=== PATIENT | female | born 2000 | race Caucasian/White ===

== ENCOUNTER 2020-10-03 04:35 | Inpatient (IN) | payer OTHER, SELFPAY ==
[~2020-10-03] VITALS: Ht 154.9 cm; Wt 114.3 kg
[2020-10-03] MEDS ORDERED: [UNRECOGNIZED DRUG - CODE] PO (04:48)
[2020-10-03] MEDS ORDERED: TRA200 PO (04:51)
[2020-10-03] MEDS ORDERED: METHYLERGONOVINE 0.2 MG/ML AMP IM PRN (05:20)
[2020-10-03] MEDS ORDERED: OXYTOCIN 20 UNITS in LACTATED RINGERS 1,000 ML IV SCH (05:20)
[2020-10-03] MEDS ORDERED: PROMETHAZINE 25 MG/ML VIAL IVP PRN (05:20)
[2020-10-03] MEDS ORDERED: CARBOPROST 250 MCG/ML AMP IM PRN (05:20)
[2020-10-03] MEDS ORDERED: LACTATED RINGERS 500 ML IV SCH (05:20)
[2020-10-03] MEDS ORDERED: AMPICILLIN 2,000 MG in NACL 0.9% MINI-BAG PLUS 100 ML IV SCH (05:20)
[2020-10-03] MEDS ORDERED: OXYTOCIN 10 UNITS/ML VIAL IM SCH (05:20)
[2020-10-03] MEDS ORDERED: NALBUPHINE 10 MG/ML AMP IVP PRN (05:20)
[2020-10-03] MEDS ORDERED: AMPICILLIN 2,000 MG VIAL ONE (05:32)
[2020-10-03 05:38] VITALS: BP 135/71
[2020-10-03] MEDS: LACTATED RINGERS 1,000 ML IV SCH ×3 (06:03→17:36)
--- NOTE | 2020-10-03 06:57 | NUR ---
PATIENT HAS BEEN SCREENED AND CATEGORIZED LOW NUTRITION RISK. PATIENT WILL BE SEEN WITHIN 7 DAYS OF ADMISSION. 10/11/20 VANDANA ZAVALETA MS, RDN
[2020-10-03 08:06] LABS: APPEARANCE,URINE CLEAR (CLEAR); BILIRUBIN,URINE NEGATIVE (NEGATIVE); BLOOD, URINE NEGATIVE (NEGATIVE); COLOR,URINE YELLOW (YELLOW); LEUKOCYTE ESTERASE ,URINE NEGATIVE (NEGATIVE); NITRITE, URINE NEGATIVE (NEGATIVE); UGLUCOSE NEGATIVE (NEGATIVE)
[2020-10-03 08:07] LABS: BASOPHILS % (AUTO) 0.4 % (0.0-2.0); EOSINOPHILS # (AUTO) 0.1 K/uL (0-0.4); EOSINOPHILS % (AUTO) 1.3 % (0.0-4.0); HEMOGLOBIN 11.5 g/dL (12.0-16.0); LYMPHOCYTES # (AUTO) 1.4 K/uL (2.5-16.5); LYMPHOCYTES % (AUTO) 13.9 % (20.5-51.1); MEAN CORPUSCULAR HEMOGLOBIN 26 pg (27-31); MEAN CORPUSCULAR HGB CONC 33 g/dL (33-37); MEAN CORPUSCULAR VOLUME 79.5 fL (80-94); MONOCYTES # (AUTO) 0.6 K/uL (0.8-1.0); MONOCYTES % (AUTO) 5.8 % (1.7-9.3); NEUTROPHILS # (AUTO) 7.7 K/uL (1.8-7.7); NEUTROPHILS % (AUTO) 78.6 % (42.2-75.2); PLATELET COUNT (AUTO) 301 K/uL (140-450); RED BLOOD CELL COUNT(AUTO) 4.41 MIL/uL (4.20-5.40); RED CELL DISTRIBUTION WIDTH 15.8 % (11.6-13.7); WHITE BLOOD COUNT (AUTO) 9.8 K/uL (4.5-11.0)
[2020-10-03 08:12] LABS: ALBUMIN 2.3 g/dL (3.4-5.0); CREATININE 0.5 mg/dL (0.6-1.3); TOTAL BILIRUBIN 0.2 mg/dL (0.0-1.0)
[2020-10-03 08:16] LABS: BARBITURATE, URINE NEGATIVE ng/ml (NEG <=200); BENZODIAZEPINE, URINE NEGATIVE ng/mL (NEG <=200); CANNABINOID, URINE NEGATIVE ng/mL (NEG <=50); COCAINE, URINE NEGATIVE ng/mL (NEG <=300); OPIATE, URINE NEGATIVE ng/mL (NEG <=2000); PHENCYCLIDINE SCREEN,URINE NEGATIVE ng/mL (NEG <=25)
[2020-10-03] MEDS ORDERED: AMPICILLIN 1,000 MG VIAL ONE ×3 (10:04→17:58)
[2020-10-03] MEDS: AMPICILLIN 1,000 MG in NACL 0.9% MINI-BAG PLUS 50 ML IV SCH ×2 (14:09→18:01)
[2020-10-03] MEDS ORDERED: LIDOCAINE 1% 500 MG/50 ML VIAL ONE (20:10)
[2020-10-03] MEDS ORDERED: fentaNYL citrate 0.05 MG/ML VIAL ONE (20:14)
[2020-10-03] MEDS ORDERED: ROPIVACAINE 0.2%/NS PREMIX 200 ML EPI ONE (20:15)
[2020-10-04] MEDS ORDERED: AMPICILLIN 1,000 MG VIAL ONE ×4 (00:47→13:58)
[2020-10-04] MEDS: LACTATED RINGERS 1,000 ML IV SCH ×2 (02:28→10:34)
[2020-10-04] MEDS ORDERED: OXYTOCIN 20 UNITS/LR PREMIX 1,000 ML IV ONE ×2 (04:53→18:03)
[2020-10-04] MEDS: AMPICILLIN 1,000 MG in NACL 0.9% MINI-BAG PLUS 50 ML IV SCH ×3 (05:44→14:03)
[2020-10-04] MEDS ORDERED: ROPIVACAINE 0.2%/NS PREMIX 200 ML EPI ONE (09:34)
[2020-10-04] MEDS ORDERED: TERBUTALINE 1 MG/ML VIAL SUBQ SCH (15:55)
[2020-10-04] MEDS ORDERED: TERBUTALINE 1 MG/ML VIAL SUBQ ONE (15:58)
[2020-10-04] MEDS ORDERED: MORPHINE PRES FREE 10 MG/10 ML AMP IV ONE (16:45)
[2020-10-04] MEDS ORDERED: MORPHINE SULFATE 4 MG/ML SYR ONE (16:50)
[2020-10-04] MEDS ORDERED: ONDANSETRON 4 MG/2 ML VIAL ONE (16:50)
[2020-10-04] MEDS ORDERED: PROPOFOL 200 MG/20 ML VIAL IV ONE (16:50)
[2020-10-04] MEDS ORDERED: LIDOCAINE MPF 1% 10 MG/ML VIAL INJ SCH (17:05)
[2020-10-04] MEDS ORDERED: OXYTOCIN 20 UNITS in LACTATED RINGERS 1,000 ML IV SCH ×2 (17:20→20:30)
[2020-10-04] MEDS ORDERED: NALOXONE 0.4 MG/ML VIAL IVP PRN ×2 (17:20)
[2020-10-04] MEDS ORDERED: ONDANSETRON 4 MG/2 ML VIAL IVP PRN (17:20)
[2020-10-04] MEDS ORDERED: KETOROLAC 15 MG/ML VIAL IVP PRN (17:20)
[2020-10-04] MEDS ORDERED: diphenhydrAMINE 50 MG/ML VIAL IVP PRN (17:20)
[2020-10-04] MEDS ORDERED: MIDAZOLAM 2 MG/2 ML VIAL ONE (18:03)
[2020-10-04] MEDS ORDERED: KETAMINE 500 MG/5 ML VIAL ONE (18:29)
[2020-10-04] MEDS ORDERED: MEASLES, MUMPS, AND RUBELLA 1 VIAL SQVAC ONE (20:30)
[2020-10-04] MEDS ORDERED: HYDROmorphone 1 MG/ML AMP IVP PRN (20:30)
[2020-10-04] MEDS ORDERED: HYDROmorphone PFS 2 MG/ML SYR ONE (20:31)
[2020-10-04] MEDS: HYDROmorphone 1 MG/ML AMP IVP PRN ×2 (20:36→20:46)
[2020-10-04] MEDS ORDERED: METOPROLOL 5 MG/5 ML VIAL ONE (22:48)
[2020-10-04] MEDS: ACETAMINOPHEN 650 MG SUPP RC PRN (23:06)
[2020-10-05] MEDS ORDERED: ceFAZolin 1,000 MG VIAL ONE (00:56)
[2020-10-05 08:14] LABS: BASOPHILS % (AUTO) 0.2 % (0.0-2.0); EOSINOPHILS % (AUTO) 0.2 % (0.0-4.0); HEMATOCRIT 31.3 % (36-48); HEMOGLOBIN 10.2 g/dL (12.0-16.0); LYMPHOCYTES # (AUTO) 0.9 K/uL (2.5-16.5); LYMPHOCYTES % (AUTO) 7.8 % (20.5-51.1); MEAN CORPUSCULAR HEMOGLOBIN 26 pg (27-31); MEAN CORPUSCULAR HGB CONC 33 g/dL (33-37); MEAN CORPUSCULAR VOLUME 79.9 fL (80-94); MONOCYTES % (AUTO) 8.6 % (1.7-9.3); NEUTROPHILS # (AUTO) 9.4 K/uL (1.8-7.7); NEUTROPHILS % (AUTO) 83.2 % (42.2-75.2); PLATELET COUNT (AUTO) 266 K/uL (140-450); RED BLOOD CELL COUNT(AUTO) 3.91 MIL/uL (4.20-5.40); RED CELL DISTRIBUTION WIDTH 16.1 % (11.6-13.7); WHITE BLOOD COUNT (AUTO) 11.3 K/uL (4.5-11.0)
[2020-10-05] MEDS: LABETALOL 100 MG TAB PO SCH ×3 (09:20→20:28)
[2020-10-05] MEDS: LACTATED RINGERS 1,000 ML IV SCH ×2 (09:20→19:56)
[2020-10-05] MEDS ORDERED: OXYTOCIN 20 UNITS/LR PREMIX 1,000 ML IV ONE (10:32)
[2020-10-05] MEDS: ACETAMINOPHEN 650 MG SUPP RC PRN (16:23)
[2020-10-05] MEDS: KETOROLAC 15 MG/ML VIAL IVP PRN (17:59)
[2020-10-05] MEDS ORDERED: ACETAMINOPHEN 325 MG TAB PO PRN (22:00)
[2020-10-06] MEDS: LACTATED RINGERS 1,000 ML IV SCH (01:58)
[2020-10-06] MEDS: ACETAMINOPHEN 650 MG SUPP RC PRN ×2 (02:06→17:13)
[2020-10-06] MEDS: KETOROLAC 15 MG/ML VIAL IVP PRN (04:55)
[2020-10-06] MEDS: LABETALOL 100 MG TAB PO SCH ×2 (09:11→20:26)
[2020-10-06] MEDS: SIMETHICONE 80 MG TAB.CHEW PO SCH ×3 (09:11→17:00)
[2020-10-06] MEDS: bisacodyL 5 MG TABEC PO SCH (09:12)
[2020-10-06] MEDS: DOCUSATE SODIUM 100 MG GELCAP PO SCH (09:12)
[2020-10-06] MEDS ORDERED: NEOMYCIN/POLYMYXIN/BACITRACIN OIN 15 GM TUBE TP PRN (13:10)
[2020-10-06] MEDS: IBUPROFEN 600 MG TAB PO PRN (13:39)
[2020-10-07] MEDS: IBUPROFEN 600 MG TAB PO PRN ×2 (07:18→17:28)
[2020-10-07 08:49] LABS: BASOPHILS % (AUTO) 0.3 % (0.0-2.0); EOSINOPHILS # (AUTO) 0.1 K/uL (0-0.4); EOSINOPHILS % (AUTO) 1.1 % (0.0-4.0); HEMATOCRIT 29.2 % (36-48); HEMOGLOBIN 9.4 g/dL (12.0-16.0); LYMPHOCYTES # (AUTO) 0.9 K/uL (2.5-16.5); LYMPHOCYTES % (AUTO) 9.2 % (20.5-51.1); MEAN CORPUSCULAR HEMOGLOBIN 26 pg (27-31); MEAN CORPUSCULAR HGB CONC 32 g/dL (33-37); MEAN CORPUSCULAR VOLUME 80.4 fL (80-94); MONOCYTES # (AUTO) 0.6 K/uL (0.8-1.0); MONOCYTES % (AUTO) 6.2 % (1.7-9.3); NEUTROPHILS # (AUTO) 7.8 K/uL (1.8-7.7); NEUTROPHILS % (AUTO) 83.2 % (42.2-75.2); PLATELET COUNT (AUTO) 333 K/uL (140-450); RED BLOOD CELL COUNT(AUTO) 3.64 MIL/uL (4.20-5.40); RED CELL DISTRIBUTION WIDTH 16.7 % (11.6-13.7); WHITE BLOOD COUNT (AUTO) 9.4 K/uL (4.5-11.0)
[2020-10-07] MEDS: DOCUSATE SODIUM 100 MG GELCAP PO SCH (09:07)
[2020-10-07] MEDS: SIMETHICONE 80 MG TAB.CHEW PO SCH ×3 (09:07→17:28)
[2020-10-07] MEDS: bisacodyL 5 MG TABEC PO SCH (09:07)
[2020-10-07] MEDS: LABETALOL 100 MG TAB PO SCH ×2 (09:07→21:30)
[2020-10-08] MEDS: IBUPROFEN 600 MG TAB PO PRN (05:27)
[2020-10-08] MEDS: DOCUSATE SODIUM 100 MG GELCAP PO SCH (09:44)
[2020-10-08] MEDS: bisacodyL 5 MG TABEC PO SCH (09:45)
[2020-10-08] MEDS: SIMETHICONE 80 MG TAB.CHEW PO SCH (09:45)
[2020-10-08] MEDS: LABETALOL 100 MG TAB PO SCH (09:46)
== END 2020-10-08 14:05 | disposition home or self-care (01) | DRG 540 ==
LOC: MLD 04:35 → MFCC 10-04 21:17
PROVIDERS: ADMIT Obstetrics & Gynecology; ATTEND Obstetrics & Gynecology
PROC: 00HU33Z Insertion of Infusion Device into Spinal Canal, Percutaneous Approach (ICD-10-PCS; 2020-10-03)
PROC: 3E0R3BZ Introduction of Anesthetic Agent into Spinal Canal, Percutaneous Approach (ICD-10-PCS; 2020-10-03)
PROC: 3E0134Z Introduction of Serum, Toxoid and Vaccine into Subcutaneous Tissue, Percutaneous Approach (ICD-10-PCS; 2020-10-04)
PROC: 3E0234Z Introduction of Serum, Toxoid and Vaccine into Muscle, Percutaneous Approach (ICD-10-PCS; 2020-10-06)
PROC: 10D00Z1 Extraction of Products of Conception, Low, Open Approach (ICD-10-PCS; principal; 2020-10-08)
DX: O64.0XX0 Obstructed labor due to incomplete rotation of fetal head, not applicable or unspecified (principal); E66.01 Morbid (severe) obesity due to excess calories; R71.0 Precipitous drop in hematocrit; O24.425 Gestational diabetes mellitus in childbirth, controlled by oral hypoglycemic drugs; O99.214 Obesity complicating childbirth; O62.0 Primary inadequate contractions; O69.81X0 Labor and delivery complicated by cord around neck, without compression, not applicable or unspecified; D25.9 Leiomyoma of uterus, unspecified; O99.892 Other specified diseases and conditions complicating childbirth; O99.52 Diseases of the respiratory system complicating childbirth; O42.92 Full-term premature rupture of membranes, unspecified as to length of time between rupture and onset of labor; J45.909 Unspecified asthma, uncomplicated; O76 Abnormality in fetal heart rate and rhythm complicating labor and delivery; O13.4 Gestational [pregnancy-induced] hypertension without significant proteinuria, complicating childbirth; O99.344 Other mental disorders complicating childbirth; F32.9 Major depressive disorder, single episode, unspecified; O34.13 Maternal care for benign tumor of corpus uteri, third trimester; N83.8 Other noninflammatory disorders of ovary, fallopian tube and broad ligament; Z20.822 Contact with and (suspected) exposure to COVID-19; Z37.0 Single live birth; Z3A.37 37 weeks gestation of pregnancy; Z23 Encounter for immunization
CPT/HCPCS: 36415; 51702; 76805; 80053; 80305; 81003; 85025; 86592; 86886; 86900; 86901; 87340; 87653-90; 90715; J0290; J0690; J1170; J1885; J2001; J2250; J2270; J2300; J2405; J2550; J2590; J2704; J2795; J3010; J3105; J3490; J7060; J7120